=== PATIENT | female | born 1965 | race African-American/Black ===

== ENCOUNTER → 2020-07-09 | Outpatient (CLI) | payer BC ==
[~2020-07-09] MED LIST: HYDROCHLOROTH12.5 MG; IBUPROFEN 800800 MG PO; NORCO 5-325 TA1 EACH PO
== END ==
LOC: LAB 11:45
PROVIDERS: ATTEND Internal Medicine
DX: Z20.822 Contact with and (suspected) exposure to COVID-19 (principal)